=== PATIENT | male | born 1975 | race Caucasian/White ===

== ENCOUNTER 2024-12-24 07:37 | Day surgery (SDC) | payer OTHER ==
[2024-12-24] MEDS ORDERED: LIDOCAINE HCL 2% 100 MG/5 ML IJ ONE (07:38)
[2024-12-24] MEDS ORDERED: propofoL IV ONE (09:58)
[2024-12-24] MEDS ORDERED: Versed 2 MG/2 ML Injection ONE (09:58)
[2024-12-24] MEDS ORDERED: Lactated Ringers 1,000 ML IV ONE (10:29)
--- NOTE | 2024-12-24 12:28 | XRAY ---
Indication: Right C2-C4 MBB. Intraoperative fluoroscopy provided for 17 seconds. 3 digital spot image submitted for interpretation demonstrates posterior needle tips projecting over expected right C2-C4 nerve roots. Correlate with intraoperative findings/report.
--- NOTE | 2024-12-24 12:48 | XRAY ---
17 seconds of fluoroscopy was used in surgery for a right C2-C4 MBB.
== END 2024-12-24 10:30 | disposition home or self-care (01) ==
LOC: SDC-PAIN 07:37
PROVIDERS: ATTEND Psychiatry & Neurology Pain Medicine
DX: M47.812 Spondylosis without myelopathy or radiculopathy, cervical region (principal); E11.9 Type 2 diabetes mellitus without complications

== ENCOUNTER 2025-01-21 07:25 | Day surgery (SDC) | payer OTHER ==
[2025-01-21] MEDS ORDERED: LIDOCAINE HCL 2% 100 MG/5 ML IJ ONE (07:26)
[2025-01-21] MEDS ORDERED: Versed 2 MG/2 ML Injection ONE (09:14)
[2025-01-21] MEDS ORDERED: propofoL IV ONE (09:14)
--- NOTE | 2025-01-21 10:24 | XRAY ---
Indication: Left C2-C4 MBB. Intraoperative fluoroscopy provided for 26 seconds. 2 digital spot images submitted for interpretation demonstrates posterior needle tips projecting over expected left C2-C4 nerve roots. Correlate with intraoperative findings/report.
[2025-01-21] MEDS ORDERED: Lactated Ringers 1,000 ML IV ONE (11:25)
--- NOTE | 2025-01-21 12:00 | XRAY ---
26 seconds of fluoroscopy was used in surgery for a left C2-C4 MBB.
== END 2025-01-21 10:05 | disposition home or self-care (01) ==
LOC: SDC-PAIN 07:25
PROVIDERS: ATTEND Psychiatry & Neurology Pain Medicine
DX: M47.812 Spondylosis without myelopathy or radiculopathy, cervical region (principal); E11.9 Type 2 diabetes mellitus without complications

== ENCOUNTER 2025-02-11 08:21 | Day surgery (SDC) | payer OTHER ==
[2025-02-11] MEDS ORDERED: BUPIVACAINE 0.5% VIAL IJ ONE (08:22)
[2025-02-11] MEDS ORDERED: Versed 2 MG/2 ML Injection ONE (09:40)
[2025-02-11] MEDS ORDERED: propofoL IV ONE (10:15)
[2025-02-11] MEDS ORDERED: Lactated Ringers 1,000 ML IV ONE (11:12)
--- NOTE | 2025-02-11 11:44 | XRAY ---
Indication: Left C2-C4. Intraoperative fluoroscopy provided for 13 seconds. 3 digital spot image submitted for interpretation demonstrates posterior needle tips projecting over expected left C2-C4 nerve roots. Correlate with intraoperative findings/report.
--- NOTE | 2025-02-11 12:34 | XRAY ---
13 seconds of fluoroscopy was used in surgery for a left C2-C4 MBB.
== END 2025-02-11 10:55 | disposition home or self-care (01) ==
LOC: SDC-PAIN 08:21
PROVIDERS: ATTEND Psychiatry & Neurology Pain Medicine
DX: M47.812 Spondylosis without myelopathy or radiculopathy, cervical region (principal); E11.9 Type 2 diabetes mellitus without complications